=== PATIENT | female | born 1990 | race Two or more races ===

== ENCOUNTER 2016-11-12 | Emergency (ER) | payer MEDICAID | END 2016-11-12 11:04 | disposition left against medical advice (07) | DX: Z53.21 Procedure and treatment not carried out due to patient leaving prior to being seen by health care provider (principal) ==

== ENCOUNTER 2017-03-06 08:15 | Outpatient (CLI) | payer MEDICAID | END 2017-03-06 08:16 | disposition home or self-care (01) | DX: G43.909 Migraine, unspecified, not intractable, without status migrainosus (principal) ==

== ENCOUNTER 2017-03-16 13:52 | Emergency (ER) | payer MEDICAID ==
[2017-03-16] MEDS ORDERED: SODIUM CHLORIDE 0.9% 1,000 ML IV ONE (16:27)
[2017-03-16] MEDS ORDERED: ACETAMINOPHEN 1,000 MG/100 ML 100 ML IV STA (16:31)
[2017-03-16] MEDS ORDERED: diphenhydrAMINE INJ 50 MG/ML VIAL IVP STA (16:31)
[2017-03-16] MEDS ORDERED: METOCLOPRAMIDE 10 MG/2 ML VIAL IVP STA (16:31)
[2017-03-16] MEDS ORDERED: DEXAMETHASONE 10 MG/ML VIAL IVP STA (16:31)
[2017-03-16] MEDS ORDERED: KETOROLAC 30 MG/ML VIAL IVP STA (16:31)
[2017-03-16] MEDS ORDERED: KETOROLAC 30 MG/ML VIAL ONE (16:42)
[2017-03-16] MEDS ORDERED: diphenhydrAMINE INJ 50 MG/ML VIAL ONE (16:42)
[2017-03-16] MEDS ORDERED: DEXAMETHASONE 10 MG/ML VIAL ONE (16:43)
[2017-03-16] MEDS ORDERED: ACETAMINOPHEN 1,000 MG/100 ML 100 ML IV ONE (16:43)
[2017-03-16] MEDS ORDERED: METOCLOPRAMIDE 10 MG/2 ML VIAL IVP ONE (16:43)
[2017-03-16] MEDS ORDERED: fentaNYL 100 MCG/2 ML VIAL IVP STA (18:19)
[2017-03-16] MEDS ORDERED: fentaNYL 100 MCG/2 ML VIAL ONE (18:21)
== END 2017-03-16 18:29 | disposition home or self-care (01) ==
DX: G43.901 Migraine, unspecified, not intractable, with status migrainosus (principal); E03.9 Hypothyroidism, unspecified
CPT/HCPCS: 36415; 70450; 80053; 83690; 85025; 85651; 96365; 96375; 99283; 99284; J0131

== ENCOUNTER 2017-03-27 07:35 | Outpatient (CLI) | payer MEDICAID ==
[2017-03-27] MEDS ORDERED: GADOBUTROL 10 MMOL/10 ML VIAL IVP ONE (08:37)
--- NOTE | 2017-03-27 10:04 | MRI Report ---
EXAM: MRI BRAIN WITHOUT AND WITH CONTRAST EXAM DATE: 03/27/2017 08:46 AM. CLINICAL HISTORY: Migraine, unspecified, not intractable, without status migraine. Headache for one m onth, worse in the temples. Symptoms are worse on the right side, but now moving to the left. COMPARISON: CT scan of the head 03/16/2017, 10/08/2015. TECHNIQUE: Multiplanar, multisequence T1-weighted and fluid-sensitive MR sequences of the brain were performed. Sequences optimized for routine evaluation. Other: None. Without and with IV Contrast: 9 c c Gadavist. FINDINGS: Brain Volume: Normal for age. Parenchyma/Dura: No masses, infarcts, or hemorrhage. No white matter lesions identified. Normal corti noris signal intensity is seen. No abnormal enhancement. Ventricles/Cisterns: Normal. No hydrocephalus. Orbits: The globes, optic nerve sheath complex, extraocular muscles, and orbital fat are unremarkable . Sella turcica: The pituitary gland, cavernous sinuses, suprasellar cistern, and optic chiasm are unre markable. IAC: The internal auditory canals and cerebellopontine angle cisterns are symmetric and unremarkable. Vasculature: Normal signal flow void is seen in the major arterial structures at the skull base. The dural sinuses are patent and enhance normally. The right transverse sinus and jugular bulb are domina nt. Sinuses: The paranasal sinuses are clear. A small focus of opacification is seen in posterior right m astoid air cell. Bones: The skull is intact. Other: None. IMPRESSION: 1. Normal MRI of the brain without and with contrast. 2. Opacification of small posterior right mastoid air cell. This is unusual in location. Cystic dilat ation of the vestibular aqueduct could be a consideration. If this is of concern, correlation with CT scan of the temporal bones could be considered. [facility] Referring Provider Line: [phone] SITE ID: [id number]
== END 2017-03-27 07:36 | disposition home or self-care (01) ==
LOC: DI 07:35
PROVIDERS: ATTEND Physician Assistant Medical
DX: G43.909 Migraine, unspecified, not intractable, without status migrainosus (principal); H74.8X1 Other specified disorders of right middle ear and mastoid
CPT/HCPCS: 70553; A9585

== ENCOUNTER 2017-11-19 08:00 | Outpatient (CLI) | payer MEDICAID | END 2017-11-19 08:01 | disposition home or self-care (01) | LOC: LAB.R 08:00 | PROVIDERS: ATTEND Family Medicine | DX: J06.9 Acute upper respiratory infection, unspecified (principal) | CPT/HCPCS: 87275; 87276 ==